=== PATIENT | male | born 1950 | race Caucasian/White ===

== ENCOUNTER 2022-07-08 14:29 | Inpatient (IN) ==
[2022-07-08 15:38] LABS: Basophils # 0.1 10*3/uL (0.0-0.2); Basophils % 1.4 % (0.0-0.8); Eosinophils # 0.1 10*3/uL (0.0-0.87); Eosinophils % 2.5 % (0.00-10.9); Hematocrit 30.9 VOL% (42.0-52.0); Hemoglobin 10.1 GM/DL (14.0-18.0); Immature Granulocytes % 0.4 %; Immature Granulocytes Absolute 0.02 #; Lymphocytes # 1.8 10*3/uL (1.4-4.0); Mean Corpuscular HGB Conc 32.7 GM/DL (32-36); Mean Corpuscular Volume 121.2 FL (87-102); Mean Platelet Volume 11.5 FL (9.6-12.0); Monocytes # 0.6 10*3/uL (0.11-0.8); Neutrophils % 50.7 % (38.7-73.9); Platelet Count 146 T/CUMM (130-400); Red Blood Count 2.55 MC/CUMM (3.8-5.5); Red Cell Distribution Width 13.7 % (9.3-17.3); White Blood Count 5.2 T/CUMM (4-12)
[2022-07-08 15:43] LABS: INR 1.5; PT Patient Result 16.1 SECS (10.1-12.1)
[2022-07-08 15:53] LABS: Albumin 2.7 G/DL (3.4-5.0); Bilirubin,Total 2.9 MG/DL (0.20-1.00); Calcium 9.2 MG/DL (8.5-10.1); Osmolality,Calculated 289.3 MOS/KG (273-304); Potassium 4.6 MMOL/L (3.5-5.1); Total Protein 7.1 G/DL (6.4-8.2)
[2022-07-08] MEDS ORDERED: ALBUTEROL/IPRATROPIUM 3 ML NEB RESP TX STA (16:38)
[2022-07-08] MEDS ORDERED: ONDANSETRON 4 MG/2 ML VIAL IV PRN (16:40)
[2022-07-08] MEDS ORDERED: ACETAMINOPHEN 325 MG TABLET PO PRN (16:40)
[2022-07-08] MEDS ORDERED: ALBUTEROL/IPRATROPIUM 3 ML NEB RESP TX ONE (17:09)
[2022-07-08] MEDS ORDERED: ALBUTEROL 2.5 MG/3 ML NEB RESP TX SCH (19:00)
[2022-07-08] MEDS ORDERED: ALBUTEROL/IPRATROPIUM 3 ML NEB RESP TX PRN (19:05)
[2022-07-08] MEDS: ALBUTEROL 2.5 MG/3 ML NEB RESP TX SCH (19:55)
[2022-07-08] MEDS: DOCUSATE SODIUM 100 MG CAPSULE PO SCH (20:37)
[2022-07-09 04:11] LABS: Osmolality,Calculated 294.8 MOS/KG (273-304); Potassium 5.1 MMOL/L (3.5-5.1)
[2022-07-09 04:14] LABS: Albumin 2.1 G/DL (3.4-5.0); Bilirubin,Direct 1.13 MG/DL (0.0-0.20); Bilirubin,Total 2.1 MG/DL (0.20-1.00); Total Protein 5.9 G/DL (6.4-8.2)
[2022-07-09 04:20] LABS: INR 1.7; PT Patient Result 17.8 SECS (10.1-12.1)
[2022-07-09 05:28] LABS: Basophils % 0.7 % (0.0-0.8); Eosinophils # 0.2 10*3/uL (0.0-0.87); Eosinophils % 2.7 % (0.00-10.9); Hematocrit 25.4 VOL% (42.0-52.0); Hemoglobin 8.2 GM/DL (14.0-18.0); Immature Granulocytes % 0.5 %; Immature Granulocytes Absolute 0.03 #; Lymphocytes # 2.3 10*3/uL (1.4-4.0); Lymphocytes % 40.5 % (21.2-54.2); Mean Corpuscular HGB Conc 32.3 GM/DL (32-36); Mean Corpuscular Volume 122.1 FL (87-102); Monocytes # 0.7 10*3/uL (0.11-0.8); Monocytes % 12.7 % (1.7-12.7); Neutrophils % 42.9 % (38.7-73.9); Platelet Count 113 T/CUMM (130-400); Red Blood Count 2.08 MC/CUMM (3.8-5.5); Red Cell Distribution Width 13.6 % (9.3-17.3); White Blood Count 5.7 T/CUMM (4-12)
[2022-07-09 06:16] LABS: Platelet Estimate Decreased
[2022-07-09] MEDS: ALBUTEROL 2.5 MG/3 ML NEB RESP TX SCH ×4 (07:36→20:29)
[2022-07-09] MEDS ORDERED: FUROSEMIDE 40 MG/4 ML VIAL IV SCH (09:00)
[2022-07-09] MEDS: DOCUSATE SODIUM 100 MG CAPSULE PO SCH ×2 (09:21→21:35)
[2022-07-09] MEDS: PANTOPRAZOLE 40 MG TABLET PO SCH (09:21)
[2022-07-09 11:51] LABS: Hepatitis B Core IgM Quant 0.19 Index; Hepatitis B Surface Ag Quant < 0.10 Index; Hepatitis B Surface Ag Result Non-Reactive (NonReactive); Hepatitis C Virus Ab Quant > 11.00 Index; Hepatitis C Virus Ab Result Reactive (NonReactive)
[2022-07-09] MEDS ORDERED: carvediloL 3.125 MG TABLET PO SCH (17:00)
[2022-07-09] MEDS: metOLazone 5 MG TABLET PO SCH (17:26)
[2022-07-09] MEDS ORDERED: carvediloL 6.25 MG TABLET PO SCH (21:00)
[2022-07-09] MEDS: FUROSEMIDE 40 MG/4 ML VIAL IV SCH (21:34)
[2022-07-09] MEDS: ALBUMIN 25% 25 GM/100 ML VIAL IV SCH (21:35)
[2022-07-09] MEDS: MIDODRINE 5 MG TABLET PO SCH (21:35)
[2022-07-10] MEDS: ALBUTEROL 2.5 MG/3 ML NEB RESP TX SCH ×4 (01:58→19:27)
[2022-07-10] MEDS: THYROID 60 MG TABLET PO SCH (05:13)
[2022-07-10] MEDS: ALBUMIN 25% 25 GM/100 ML VIAL IV SCH ×3 (10:13→21:30)
[2022-07-10] MEDS: DOCUSATE SODIUM 100 MG CAPSULE PO SCH ×2 (10:14→21:30)
[2022-07-10] MEDS: CHOLECALCIFEROL 5,000 UNIT TABLET PO SCH (10:14)
[2022-07-10] MEDS: ASPIRIN EC 81 MG TABLET PO SCH (10:14)
[2022-07-10] MEDS: metOLazone 5 MG TABLET PO SCH (10:14)
[2022-07-10] MEDS: MIDODRINE 5 MG TABLET PO SCH ×3 (10:15→21:30)
[2022-07-10] MEDS: FUROSEMIDE 40 MG/4 ML VIAL IV SCH ×2 (10:15→16:34)
[2022-07-10] MEDS: ESCITALOPRAM 10 MG TABLET PO SCH (10:15)
[2022-07-10] MEDS: PANTOPRAZOLE 40 MG TABLET PO SCH (10:15)
[2022-07-10] MEDS ORDERED: FUROSEMIDE 80 MG TABLET PO SCH (20:00)
[2022-07-10] MEDS: FUROSEMIDE 80 MG TABLET PO SCH (21:30)
[2022-07-11] MEDS: ALBUTEROL 2.5 MG/3 ML NEB RESP TX SCH ×5 (00:44→23:46)
[2022-07-11] MEDS: THYROID 60 MG TABLET PO SCH (05:05)
[2022-07-11 05:31] LABS: Basophils # 0.1 10*3/uL (0.0-0.2); Basophils % 0.6 % (0.0-0.8); Eosinophils # 0.3 10*3/uL (0.0-0.87); Eosinophils % 3.6 % (0.00-10.9); Hematocrit 24.9 VOL% (42.0-52.0); Hemoglobin 8.1 GM/DL (14.0-18.0); Immature Granulocytes Absolute 0.08 #; Lymphocytes # 2.2 10*3/uL (1.4-4.0); Lymphocytes % 28.3 % (21.2-54.2); Mean Corpuscular HGB Conc 32.5 GM/DL (32-36); Mean Corpuscular Volume 120.9 FL (87-102); Mean Platelet Volume 11.9 FL (9.6-12.0); Monocytes # 1.2 10*3/uL (0.11-0.8); Monocytes % 15.2 % (1.7-12.7); Neutrophils % 51.3 % (38.7-73.9); Platelet Count 131 T/CUMM (130-400); Red Blood Count 2.06 MC/CUMM (3.8-5.5); Red Cell Distribution Width 13.5 % (9.3-17.3); White Blood Count 7.7 T/CUMM (4-12)
[2022-07-11 05:46] LABS: Calcium 8.8 MG/DL (8.5-10.1); Osmolality,Calculated 295.1 MOS/KG (273-304); Potassium 5.2 MMOL/L (3.5-5.1)
[2022-07-11 05:48] LABS: Albumin 2.5 G/DL (3.4-5.0); Bilirubin,Total 2.3 MG/DL (0.20-1.00); Calcium 8.8 MG/DL (8.5-10.1); Osmolality,Calculated 291.3 MOS/KG (273-304); Potassium 5.1 MMOL/L (3.5-5.1); Total Protein 6.1 G/DL (6.4-8.2)
[2022-07-11] MEDS: MIDODRINE 5 MG TABLET PO SCH ×3 (09:33→21:09)
[2022-07-11] MEDS: ASPIRIN EC 81 MG TABLET PO SCH (09:33)
[2022-07-11] MEDS: FUROSEMIDE 80 MG TABLET PO SCH ×3 (09:33→21:10)
[2022-07-11] MEDS: PANTOPRAZOLE 40 MG TABLET PO SCH (09:33)
[2022-07-11] MEDS: metOLazone 5 MG TABLET PO SCH (09:33)
[2022-07-11] MEDS: DOCUSATE SODIUM 100 MG CAPSULE PO SCH ×2 (09:33→21:10)
[2022-07-11] MEDS: CHOLECALCIFEROL 5,000 UNIT TABLET PO SCH (09:33)
[2022-07-11] MEDS: ESCITALOPRAM 10 MG TABLET PO SCH (09:33)
[2022-07-11] MEDS: ALBUMIN 25% 25 GM/100 ML VIAL IV SCH ×3 (11:01→21:08)
[2022-07-12] MEDS: THYROID 60 MG TABLET PO SCH (05:25)
[2022-07-12] MEDS: ALBUTEROL 2.5 MG/3 ML NEB RESP TX SCH ×3 (07:00→19:12)
[2022-07-12 08:39] LABS: INR 1.6; PT Patient Result 16.7 SECS (10.1-12.1)
[2022-07-12] MEDS: CHOLECALCIFEROL 5,000 UNIT TABLET PO SCH (09:44)
[2022-07-12] MEDS: PANTOPRAZOLE 40 MG TABLET PO SCH (09:45)
[2022-07-12] MEDS: MIDODRINE 5 MG TABLET PO SCH ×3 (09:45→20:23)
[2022-07-12] MEDS: FUROSEMIDE 80 MG TABLET PO SCH ×3 (09:45→20:23)
[2022-07-12] MEDS: DOCUSATE SODIUM 100 MG CAPSULE PO SCH ×2 (09:45→20:23)
[2022-07-12] MEDS: ESCITALOPRAM 10 MG TABLET PO SCH (09:45)
[2022-07-12] MEDS: metOLazone 5 MG TABLET PO SCH (09:45)
[2022-07-12] MEDS: ALBUMIN 25% 25 GM/100 ML VIAL IV SCH ×3 (09:52→20:23)
[2022-07-12] MEDS: ASPIRIN EC 81 MG TABLET PO SCH (11:15)
[2022-07-12 14:17] LABS: Neutrophils,Peritoneal Fluid 42 %; RBC,Peritoneal Fluid 230 T/CUMM
[2022-07-13] MEDS: ALBUTEROL 2.5 MG/3 ML NEB RESP TX SCH ×4 (00:02→19:20)
[2022-07-13 05:11] LABS: Basophils % 0.5 % (0.0-0.8); Eosinophils # 0.1 10*3/uL (0.0-0.87); Eosinophils % 1.6 % (0.00-10.9); Hematocrit 23.8 VOL% (42.0-52.0); Hemoglobin 7.8 GM/DL (14.0-18.0); Immature Granulocytes % 0.5 %; Immature Granulocytes Absolute 0.04 #; Lymphocytes # 1.8 10*3/uL (1.4-4.0); Lymphocytes % 21.4 % (21.2-54.2); Mean Corpuscular HGB Conc 32.8 GM/DL (32-36); Mean Corpuscular Volume 120.2 FL (87-102); Mean Platelet Volume 11.4 FL (9.6-12.0); Monocytes % 11.1 % (1.7-12.7); Neutrophils % 64.9 % (38.7-73.9); Platelet Count 107 T/CUMM (130-400); Red Blood Count 1.98 MC/CUMM (3.8-5.5); Red Cell Distribution Width 13.7 % (9.3-17.3); White Blood Count 8.6 T/CUMM (4-12)
[2022-07-13 05:27] LABS: Calcium 9.4 MG/DL (8.5-10.1); Osmolality,Calculated 294.1 MOS/KG (273-304); Potassium 4.5 MMOL/L (3.5-5.1)
[2022-07-13 05:35] LABS: Albumin 3.2 G/DL (3.4-5.0); Bilirubin,Direct 1.36 MG/DL (0.0-0.20); Bilirubin,Indirect 1.4 MG/DL (0.0-1.0); Bilirubin,Total 2.8 MG/DL (0.20-1.00); Total Protein 6.3 G/DL (6.4-8.2)
[2022-07-13 05:36] LABS: Macrocytosis Slight; Target Cells Slight
[2022-07-13 05:37] LABS: Ovalocytes Slight; Platelet Estimate Adequate
[2022-07-13] MEDS: THYROID 60 MG TABLET PO SCH (06:20)
[2022-07-13 06:31] LABS: Bilirubin,Urine Negative (Negative); Blood, Urine Negative (Negative); Glucose,Urine (UA) Negative (Negative); Hyaline Casts,Urine 9 /LPF (0-3); Ketones,Urine Negative (Negative); Mucus,Urine Occasional /LPF (Occasional); Nitrite,Urine Negative (Negative); Protein,Urine Negative (Negative); RBC,Urine 1 /HPF (0-4); Urine Appearance Clear (Clear); Urine Color Yellow (Yellow); Urine Urobilinogen 0.2 eU/dL (<2.0); Urine pH 5.5 (4.5-8.0)
[2022-07-13 06:51] LABS: Microalbum Ur Quant Random 29.4 MG/L (0-20)
[2022-07-13] MEDS: ALBUMIN 25% 25 GM/100 ML VIAL IV SCH ×3 (08:12→20:58)
[2022-07-13] MEDS: SODIUM CHLORIDE 0.9% 1,000 ML IV SCH (12:35)
[2022-07-13] MEDS ORDERED: propofoL 200 MG/20 ML VIAL IV ONE (12:41)
[2022-07-13] MEDS ORDERED: ETOMIDATE 20 MG/10 ML VIAL IV ONE (12:41)
[2022-07-13] MEDS ORDERED: LIDOCAINE 2% 5 ML VIAL ONE (12:41)
[2022-07-13 12:46] LABS: Glomerular Basement Membrane A < 0.2 U; Myeloperoxidase Antibody < 0.2 U
[2022-07-13] MEDS: CHOLECALCIFEROL 5,000 UNIT TABLET PO SCH (17:11)
[2022-07-13] MEDS: PANTOPRAZOLE 40 MG TABLET PO SCH (17:11)
[2022-07-13] MEDS: DOCUSATE SODIUM 100 MG CAPSULE PO SCH ×2 (17:11→20:50)
[2022-07-13] MEDS: ASPIRIN EC 81 MG TABLET PO SCH (17:11)
[2022-07-13] MEDS: MIDODRINE 5 MG TABLET PO SCH ×3 (17:11→20:50)
[2022-07-13] MEDS: metOLazone 5 MG TABLET PO SCH (17:12)
[2022-07-13] MEDS: ESCITALOPRAM 10 MG TABLET PO SCH (17:13)
[2022-07-13] MEDS: FUROSEMIDE 80 MG TABLET PO SCH ×2 (17:16→20:50)
[2022-07-13 19:11] LABS: Antinuclear Ab, S 0.3 U
[2022-07-14] MEDS: ALBUTEROL 2.5 MG/3 ML NEB RESP TX SCH ×4 (00:54→20:54)
[2022-07-14] MEDS: THYROID 60 MG TABLET PO SCH (05:36)
[2022-07-14] MEDS: ASPIRIN EC 81 MG TABLET PO SCH (08:59)
[2022-07-14] MEDS: MIDODRINE 5 MG TABLET PO SCH ×3 (08:59→20:18)
[2022-07-14] MEDS: metOLazone 5 MG TABLET PO SCH (08:59)
[2022-07-14] MEDS: DOCUSATE SODIUM 100 MG CAPSULE PO SCH ×2 (09:00→20:18)
[2022-07-14] MEDS: CHOLECALCIFEROL 5,000 UNIT TABLET PO SCH (09:00)
[2022-07-14] MEDS: ALBUMIN 25% 25 GM/100 ML VIAL IV SCH ×3 (09:00→20:18)
[2022-07-14] MEDS: PANTOPRAZOLE 40 MG TABLET PO SCH (09:00)
[2022-07-14] MEDS: FUROSEMIDE 80 MG TABLET PO SCH ×3 (09:00→20:18)
[2022-07-14] MEDS: ESCITALOPRAM 10 MG TABLET PO SCH (09:00)
[2022-07-14] MEDS: SODIUM CHLORIDE 0.9% 1,000 ML IV SCH (09:05)
[2022-07-14 11:13] LABS: INR 1.8; PT Patient Result 19.2 SECS (10.1-12.1)
[2022-07-14] MEDS: PIPERACILLIN/TAZOBACTAM 3,375 MG in SODIUM CHLORIDE 0.9% 100 ML IV SCH (12:32)
[2022-07-15] MEDS: ALBUTEROL 2.5 MG/3 ML NEB RESP TX SCH ×4 (00:15→20:22)
[2022-07-15] MEDS: PIPERACILLIN/TAZOBACTAM 3,375 MG in SODIUM CHLORIDE 0.9% 100 ML IV SCH ×2 (01:20→13:40)
[2022-07-15 05:01] LABS: Basophils % 0.5 % (0.0-0.8); Eosinophils # 0.2 10*3/uL (0.0-0.87); Eosinophils % 2.8 % (0.00-10.9); Hematocrit 22.3 VOL% (42.0-52.0); Hemoglobin 7.4 GM/DL (14.0-18.0); Immature Granulocytes % 0.5 %; Immature Granulocytes Absolute 0.03 #; Lymphocytes # 1.7 10*3/uL (1.4-4.0); Lymphocytes % 25.7 % (21.2-54.2); Mean Corpuscular HGB Conc 33.2 GM/DL (32-36); Mean Corpuscular Volume 117.4 FL (87-102); Mean Platelet Volume 11.2 FL (9.6-12.0); Monocytes % 15.1 % (1.7-12.7); Neutrophils % 55.4 % (38.7-73.9); Platelet Count 91 T/CUMM (130-400); Red Cell Distribution Width 13.8 % (9.3-17.3); White Blood Count 6.4 T/CUMM (4-12)
[2022-07-15 05:27] LABS: Albumin 3.8 G/DL (3.4-5.0); Bilirubin,Total 3.2 MG/DL (0.20-1.00); Calcium 9.5 MG/DL (8.5-10.1); Potassium 4.3 MMOL/L (3.5-5.1); Total Protein 6.3 G/DL (6.4-8.2)
[2022-07-15] MEDS: THYROID 60 MG TABLET PO SCH (05:29)
[2022-07-15] MEDS: ALBUMIN 25% 25 GM/100 ML VIAL IV SCH ×3 (10:32→21:48)
[2022-07-15] MEDS: FUROSEMIDE 80 MG TABLET PO SCH ×3 (10:33→21:47)
[2022-07-15] MEDS: MIDODRINE 5 MG TABLET PO SCH ×3 (10:33→21:47)
[2022-07-15] MEDS: CHOLECALCIFEROL 5,000 UNIT TABLET PO SCH (10:33)
[2022-07-15] MEDS: ASPIRIN EC 81 MG TABLET PO SCH (10:33)
[2022-07-15] MEDS: ESCITALOPRAM 10 MG TABLET PO SCH (10:34)
[2022-07-15] MEDS: PANTOPRAZOLE 40 MG TABLET PO SCH (10:34)
[2022-07-15] MEDS: DOCUSATE SODIUM 100 MG CAPSULE PO SCH ×2 (10:34→21:47)
[2022-07-15] MEDS: metOLazone 5 MG TABLET PO SCH (10:34)
[2022-07-16] MEDS: PIPERACILLIN/TAZOBACTAM 3,375 MG in SODIUM CHLORIDE 0.9% 100 ML IV SCH (00:11)
[2022-07-16] MEDS: ALBUTEROL 2.5 MG/3 ML NEB RESP TX SCH ×2 (01:50→07:50)
[2022-07-16 05:09] LABS: Basophils % 0.6 % (0.0-0.8); Eosinophils # 0.2 10*3/uL (0.0-0.87); Hematocrit 22.8 VOL% (42.0-52.0); Hemoglobin 7.7 GM/DL (14.0-18.0); Immature Granulocytes % 0.6 %; Immature Granulocytes Absolute 0.04 #; Lymphocytes # 1.5 10*3/uL (1.4-4.0); Lymphocytes % 22.1 % (21.2-54.2); Mean Corpuscular HGB Conc 33.8 GM/DL (32-36); Mean Corpuscular Volume 115.2 FL (87-102); Mean Platelet Volume 11.8 FL (9.6-12.0); Monocytes # 0.8 10*3/uL (0.11-0.8); Monocytes % 11.7 % (1.7-12.7); Platelet Count 93 T/CUMM (130-400); Red Blood Count 1.98 MC/CUMM (3.8-5.5); Red Cell Distribution Width 13.8 % (9.3-17.3); White Blood Count 6.7 T/CUMM (4-12)
[2022-07-16 05:25] LABS: Albumin 3.7 G/DL (3.4-5.0); Bilirubin,Total 3.6 MG/DL (0.20-1.00); Calcium 9.2 MG/DL (8.5-10.1); Osmolality,Calculated 294.1 MOS/KG (273-304); Potassium 2.9 MMOL/L (3.5-5.1); Total Protein 6.5 G/DL (6.4-8.2)
[2022-07-16] MEDS: THYROID 60 MG TABLET PO SCH (05:42)
[2022-07-16 05:45] LABS: Eosinophils 1 % (0-10); Lymphocytes 16 % (20-55); Platelet Estimate Decreased; Target Cells 2+; Total Cells Counted 100
[2022-07-16] MEDS ORDERED: POTASSIUM CHLORIDE 20 MEQ TABLET PO PRN (07:58)
[2022-07-16] MEDS ORDERED: POTASSIUM CHLORIDE RIDER 10 MEQ/100 ML PREMIX IV PRN (07:58)
[2022-07-16] MEDS: ALBUMIN 25% 25 GM/100 ML VIAL IV SCH (08:34)
[2022-07-16] MEDS: ESCITALOPRAM 10 MG TABLET PO SCH (08:35)
[2022-07-16] MEDS: FUROSEMIDE 80 MG TABLET PO SCH (08:36)
[2022-07-16] MEDS: MIDODRINE 5 MG TABLET PO SCH (08:36)
[2022-07-16] MEDS: CHOLECALCIFEROL 5,000 UNIT TABLET PO SCH (08:36)
[2022-07-16] MEDS: ASPIRIN EC 81 MG TABLET PO SCH (08:36)
[2022-07-16] MEDS: metOLazone 5 MG TABLET PO SCH (08:36)
[2022-07-16] MEDS: DOCUSATE SODIUM 100 MG CAPSULE PO SCH (08:37)
[2022-07-16] MEDS: PANTOPRAZOLE 40 MG TABLET PO SCH (08:37)
[2022-07-16] MEDS ORDERED: POTASSIUM CHLORIDE 20 MEQ TABLET PO ONE (08:40)
[2022-07-16 12:02] VITALS: BP 104/58
[2022-07-16] MEDS ORDERED: ALBUMIN 25% 25 GM/100 ML VIAL IV SCH (21:00)
== END 2022-07-16 12:50 | disposition swing bed (61) | DRG 432 ==
LOC: N.ED 14:29 → N.EDINP 16:33 → N.5E 17:51
PROVIDERS: ADMIT Family Medicine; ATTEND Family Medicine

== ENCOUNTER 2022-10-06 10:04 | Inpatient (IN) ==
[2022-10-06] MEDS ORDERED: POTASSIUM CHLORIDE RIDER 10 MEQ/100 ML PREMIX IV PRN (11:33)
[2022-10-06] MEDS ORDERED: POTASSIUM CHLORIDE 20 MEQ TABLET PO PRN (11:33)
[2022-10-06] MEDS ORDERED: MAGNESIUM SULF RIDER 2 GM/50 ML PREMIX IV PRN (11:33)
[2022-10-06] MEDS ORDERED: MAGNESIUM SULF RIDER 4 GM/100 ML PREMIX IV PRN (11:33)
[2022-10-06] MEDS ORDERED: ACETAMINOPHEN 325 MG TABLET PO PRN (11:33)
[2022-10-06 12:10] LABS: Basophils # 0.1 10*3/uL (0.0-0.2); Basophils % 0.7 % (0.0-0.8); Eosinophils # 0.4 10*3/uL (0.0-0.87); Eosinophils % 6.1 % (0.00-10.9); Hematocrit 24.7 VOL% (42.0-52.0); Hemoglobin 7.7 GM/DL (14.0-18.0); Immature Granulocytes % 0.7 %; Immature Granulocytes Absolute 0.05 #; Lymphocytes # 1.4 10*3/uL (1.4-4.0); Lymphocytes % 19.9 % (21.2-54.2); Mean Corpuscular HGB Conc 31.2 GM/DL (32-36); Mean Corpuscular Volume 111.3 FL (87-102); Mean Platelet Volume 10.1 FL (9.6-12.0); Monocytes # 0.8 10*3/uL (0.11-0.8); Monocytes % 10.9 % (1.7-12.7); Neutrophils % 61.7 % (38.7-73.9); Platelet Count 162 T/CUMM (130-400); Red Blood Count 2.22 MC/CUMM (3.8-5.5); Red Cell Distribution Width 14.3 % (9.3-17.3); White Blood Count 7.04 T/CUMM (4-12)
[2022-10-06 12:27] LABS: Calcium 9.4 MG/DL (8.5-10.1); Osmolality,Calculated 287.4 MOS/KG (273-304)
[2022-10-06 12:32] LABS: INR 1.3; PT Patient Result 14.6 SECS (10.1-12.1)
[2022-10-06 12:34] LABS: Albumin 2.4 G/DL (3.4-5.0); Bilirubin,Direct 0.92 MG/DL (0.0-0.20); Bilirubin,Indirect 1.2 MG/DL (0.0-1.0); Bilirubin,Total 2.1 MG/DL (0.20-1.00); Total Protein 6.9 G/DL (6.4-8.2)
[2022-10-06] MEDS: cefTRIAXone 1,000 MG in SODIUM CHLORIDE 0.9% 100 ML IV SCH (13:02)
[2022-10-06] MEDS ORDERED: ALBUTEROL 2.5 MG/3 ML NEB RESP TX PRN (13:19)
[2022-10-06] MEDS: SODIUM ZIRCONIUM CYCLOSILICATE 10 GM PACK PO SCH ×2 (15:16→20:43)
[2022-10-06] MEDS ORDERED: SODIUM CHLORIDE 0.9% 1,000 ML IV PRN (15:27)
[2022-10-06] MEDS: MIDODRINE 5 MG TABLET PO SCH ×2 (16:25→20:42)
[2022-10-06] MEDS ORDERED: FUROSEMIDE 40 MG/4 ML VIAL IV ONE (19:00)
[2022-10-06] MEDS: DOCUSATE SODIUM 100 MG CAPSULE PO SCH (21:02)
[2022-10-07 04:57] LABS: Hyaline Casts,Urine 14 /LPF (0-3); RBC,Urine <1 /HPF (0-4)
[2022-10-07 04:58] LABS: Bilirubin,Urine Negative (Negative); Blood, Urine Negative (Negative); Glucose,Urine (UA) Negative (Negative); Ketones,Urine Negative (Negative); Nitrite,Urine Negative (Negative); Protein,Urine Negative (Negative); Urine Appearance Clear (Clear); Urine Color Yellow (Yellow); Urine Urobilinogen 0.2 eU/dL (<2.0); Urine pH 5.5 (4.5-8.0)
[2022-10-07 05:41] LABS: Basophils # 0.1 10*3/uL (0.0-0.2); Basophils % 0.8 % (0.0-0.8); Eosinophils # 0.4 10*3/uL (0.0-0.87); Eosinophils % 4.8 % (0.00-10.9); Hematocrit 28.1 VOL% (42.0-52.0); Hemoglobin 9.4 GM/DL (14.0-18.0); Immature Granulocytes % 0.8 %; Immature Granulocytes Absolute 0.06 #; Lymphocytes # 1.4 10*3/uL (1.4-4.0); Lymphocytes % 17.1 % (21.2-54.2); Mean Corpuscular HGB Conc 33.5 GM/DL (32-36); Mean Corpuscular Volume 99.3 FL (87-102); Mean Platelet Volume 10.4 FL (9.6-12.0); Monocytes % 12.3 % (1.7-12.7); Neutrophils % 64.2 % (38.7-73.9); Platelet Count 126 T/CUMM (130-400); Red Blood Count 2.83 MC/CUMM (3.8-5.5); Red Cell Distribution Width 18.6 % (9.3-17.3); White Blood Count 7.96 T/CUMM (4-12)
[2022-10-07 06:08] LABS: Calcium 9.2 MG/DL (8.5-10.1); Osmolality,Calculated 293.1 MOS/KG (273-304); Potassium 5.9 MMOL/L (3.5-5.1)
[2022-10-07 06:14] LABS: Bilirubin,Direct 0.92 MG/DL (0.0-0.20); Bilirubin,Total 2.9 MG/DL (0.20-1.00); Calcium 8.9 MG/DL (8.5-10.1); Osmolality,Calculated 291.3 MOS/KG (273-304); Potassium 5.4 MMOL/L (3.5-5.1); Total Protein 5.8 G/DL (6.4-8.2)
[2022-10-07] MEDS: PANTOPRAZOLE 40 MG TABLET PO SCH (08:55)
[2022-10-07] MEDS: DOCUSATE SODIUM 100 MG CAPSULE PO SCH ×2 (08:55→20:03)
[2022-10-07] MEDS: SODIUM ZIRCONIUM CYCLOSILICATE 10 GM PACK PO SCH ×3 (08:56→20:03)
[2022-10-07] MEDS: MIDODRINE 5 MG TABLET PO SCH ×3 (09:03→20:03)
[2022-10-07] MEDS: cefTRIAXone 1,000 MG in SODIUM CHLORIDE 0.9% 100 ML IV SCH (12:11)
[2022-10-07] MEDS ORDERED: FUROSEMIDE 40 MG/4 ML VIAL IV ONE (13:41)
[2022-10-08 04:49] LABS: Basophils # 0.1 10*3/uL (0.0-0.2); Basophils % 0.9 % (0.0-0.8); Eosinophils # 0.5 10*3/uL (0.0-0.87); Eosinophils % 6.3 % (0.00-10.9); Hematocrit 27.7 VOL% (42.0-52.0); Hemoglobin 9.2 GM/DL (14.0-18.0); Immature Granulocytes % 0.7 %; Immature Granulocytes Absolute 0.05 #; Lymphocytes % 26.7 % (21.2-54.2); Mean Corpuscular HGB Conc 33.2 GM/DL (32-36); Mean Corpuscular Volume 100.4 FL (87-102); Mean Platelet Volume 10.5 FL (9.6-12.0); Monocytes # 1.1 10*3/uL (0.11-0.8); Neutrophils % 51.4 % (38.7-73.9); Platelet Count 128 T/CUMM (130-400); Red Blood Count 2.76 MC/CUMM (3.8-5.5); Red Cell Distribution Width 18.4 % (9.3-17.3); White Blood Count 7.59 T/CUMM (4-12)
[2022-10-08 04:59] LABS: Calcium 8.6 MG/DL (8.5-10.1); Osmolality,Calculated 291.3 MOS/KG (273-304); Potassium 4.4 MMOL/L (3.5-5.1)
[2022-10-08] MEDS: THYROID 60 MG TABLET PO SCH (05:12)
[2022-10-08] MEDS ORDERED: ASPIRIN EC 81 MG TABLET PO SCH (09:00)
[2022-10-08] MEDS: DOCUSATE SODIUM 100 MG CAPSULE PO SCH ×2 (09:34→20:39)
[2022-10-08] MEDS: PANTOPRAZOLE 40 MG TABLET PO SCH (09:34)
[2022-10-08] MEDS: MIDODRINE 5 MG TABLET PO SCH ×3 (09:34→20:39)
[2022-10-08] MEDS: SODIUM ZIRCONIUM CYCLOSILICATE 10 GM PACK PO SCH (09:38)
[2022-10-08] MEDS: ESCITALOPRAM 10 MG TABLET PO SCH (09:38)
[2022-10-08] MEDS ORDERED: FUROSEMIDE 40 MG TABLET PO ONE (10:49)
[2022-10-08] MEDS: cefTRIAXone 1,000 MG in SODIUM CHLORIDE 0.9% 100 ML IV SCH (14:26)
[2022-10-08] MEDS: ONDANSETRON 4 MG/2 ML VIAL IV PRN (15:28)
[2022-10-08] MEDS ORDERED: LACTULOSE 20 GM/30 ML UDCUP PO PRN (16:15)
[2022-10-09 04:47] LABS: Basophils # 0.1 10*3/uL (0.0-0.2); Basophils % 0.5 % (0.0-0.8); Eosinophils # 0.1 10*3/uL (0.0-0.87); Eosinophils % 1.3 % (0.00-10.9); Hematocrit 31.9 VOL% (42.0-52.0); Hemoglobin 10.2 GM/DL (14.0-18.0); Immature Granulocytes % 0.4 %; Immature Granulocytes Absolute 0.04 #; Lymphocytes # 1.7 10*3/uL (1.4-4.0); Lymphocytes % 18.5 % (21.2-54.2); Mean Corpuscular Volume 102.9 FL (87-102); Mean Platelet Volume 10.7 FL (9.6-12.0); Monocytes % 11.1 % (1.7-12.7); Neutrophils % 68.2 % (38.7-73.9); Platelet Count 158 T/CUMM (130-400); Red Cell Distribution Width 17.9 % (9.3-17.3); White Blood Count 9.28 T/CUMM (4-12)
[2022-10-09 05:24] LABS: Calcium 9.1 MG/DL (8.5-10.1); Osmolality,Calculated 290.4 MOS/KG (273-304); Potassium 4.5 MMOL/L (3.5-5.1)
[2022-10-09] MEDS: THYROID 60 MG TABLET PO SCH (06:29)
[2022-10-09] MEDS: DOCUSATE SODIUM 100 MG CAPSULE PO SCH ×2 (09:29→21:17)
[2022-10-09] MEDS: MIDODRINE 5 MG TABLET PO SCH ×3 (09:29→21:17)
[2022-10-09] MEDS: PANTOPRAZOLE 40 MG TABLET PO SCH (09:29)
[2022-10-09] MEDS: ESCITALOPRAM 10 MG TABLET PO SCH (09:30)
[2022-10-09] MEDS: cefTRIAXone 1,000 MG in SODIUM CHLORIDE 0.9% 100 ML IV SCH (11:54)
[2022-10-09] MEDS ORDERED: PROMETHAZINE INJ 12.5 MG in SODIUM CHLORIDE 0.9% 50 ML IV PRN (13:03)
[2022-10-09] MEDS: MORPHINE 2 MG/1 ML SYRINGE IV PRN (15:03)
[2022-10-10 05:50] LABS: Basophils # 0.1 10*3/uL (0.0-0.2); Basophils % 0.6 % (0.0-0.8); Eosinophils # 0.3 10*3/uL (0.0-0.87); Eosinophils % 2.6 % (0.00-10.9); Hematocrit 29.6 VOL% (42.0-52.0); Hemoglobin 9.6 GM/DL (14.0-18.0); Immature Granulocytes % 0.4 %; Immature Granulocytes Absolute 0.04 #; Lymphocytes # 1.6 10*3/uL (1.4-4.0); Lymphocytes % 15.6 % (21.2-54.2); Mean Corpuscular HGB Conc 32.4 GM/DL (32-36); Mean Corpuscular Volume 102.8 FL (87-102); Mean Platelet Volume 11.6 FL (9.6-12.0); Monocytes # 1.3 10*3/uL (0.11-0.8); Monocytes % 12.2 % (1.7-12.7); Neutrophils % 68.6 % (38.7-73.9); Platelet Count 128 T/CUMM (130-400); Red Blood Count 2.88 MC/CUMM (3.8-5.5); Red Cell Distribution Width 17.3 % (9.3-17.3); White Blood Count 10.42 T/CUMM (4-12)
[2022-10-10 06:08] LABS: Albumin 1.9 G/DL (3.4-5.0); Bilirubin,Direct 0.52 MG/DL (0.0-0.20); Bilirubin,Indirect 1.5 MG/DL (0.0-1.0); Calcium 9.3 MG/DL (8.5-10.1); Osmolality,Calculated 284.7 MOS/KG (273-304); Potassium 4.7 MMOL/L (3.5-5.1); Total Protein 5.9 G/DL (6.4-8.2)
[2022-10-10] MEDS: THYROID 60 MG TABLET PO SCH (06:36)
[2022-10-10 06:42] LABS: Anisocytosis 1+; Burr Cells Few; Macrocytosis Slight; Platelet Estimate Adequate
[2022-10-10] MEDS: PANTOPRAZOLE 40 MG TABLET PO SCH (09:33)
[2022-10-10] MEDS: MIDODRINE 5 MG TABLET PO SCH ×3 (09:33→20:57)
[2022-10-10] MEDS: DOCUSATE SODIUM 100 MG CAPSULE PO SCH ×2 (09:33→20:57)
[2022-10-10] MEDS: ESCITALOPRAM 10 MG TABLET PO SCH (09:37)
[2022-10-10] MEDS: cefTRIAXone 1,000 MG in SODIUM CHLORIDE 0.9% 100 ML IV SCH (13:25)
[2022-10-10] MEDS: ALBUMIN 25% 12.5 GM/50 ML VIAL IV SCH (14:10)
[2022-10-11] MEDS: ALBUMIN 25% 12.5 GM/50 ML VIAL IV SCH ×3 (00:14→23:43)
[2022-10-11 05:14] LABS: Albumin 2.3 G/DL (3.4-5.0); Osmolality,Calculated 287.5 MOS/KG (273-304); Phosphorous 5.4 MG/DL (2.5-4.9); Potassium 4.6 MMOL/L (3.5-5.1)
[2022-10-11] MEDS: THYROID 60 MG TABLET PO SCH (08:53)
[2022-10-11] MEDS: DOCUSATE SODIUM 100 MG CAPSULE PO SCH ×2 (08:59→21:43)
[2022-10-11] MEDS: ESCITALOPRAM 10 MG TABLET PO SCH (08:59)
[2022-10-11] MEDS: PANTOPRAZOLE 40 MG TABLET PO SCH (09:02)
[2022-10-11] MEDS: MIDODRINE 5 MG TABLET PO SCH ×4 (09:02→21:43)
[2022-10-11 09:51] LABS: Albumin 2.3 G/DL (3.4-5.0); Bilirubin,Direct 0.79 MG/DL (0.0-0.20); Bilirubin,Indirect 1.2 MG/DL (0.0-1.0); Total Protein 6.2 G/DL (6.4-8.2)
[2022-10-11] MEDS: cefTRIAXone 1,000 MG in SODIUM CHLORIDE 0.9% 100 ML IV SCH (13:43)
[2022-10-12 04:56] LABS: Basophils # 0.1 10*3/uL (0.0-0.2); Basophils % 1.1 % (0.0-0.8); Eosinophils # 0.3 10*3/uL (0.0-0.87); Eosinophils % 4.3 % (0.00-10.9); Hematocrit 28.8 VOL% (42.0-52.0); Hemoglobin 9.2 GM/DL (14.0-18.0); Immature Granulocytes % 0.6 %; Immature Granulocytes Absolute 0.04 #; Lymphocytes # 1.2 10*3/uL (1.4-4.0); Lymphocytes % 16.8 % (21.2-54.2); Mean Corpuscular HGB Conc 31.9 GM/DL (32-36); Mean Corpuscular Volume 103.6 FL (87-102); Mean Platelet Volume 12.1 FL (9.6-12.0); Monocytes # 0.9 10*3/uL (0.11-0.8); Monocytes % 12.9 % (1.7-12.7); Neutrophils % 64.3 % (38.7-73.9); Platelet Count 61 T/CUMM (130-400); Red Blood Count 2.78 MC/CUMM (3.8-5.5); White Blood Count 7.13 T/CUMM (4-12)
[2022-10-12 05:01] LABS: Calcium 9.3 MG/DL (8.5-10.1); Osmolality,Calculated 289.5 MOS/KG (273-304); Potassium 4.5 MMOL/L (3.5-5.1)
[2022-10-12] MEDS: THYROID 60 MG TABLET PO SCH (05:40)
[2022-10-12 05:47] LABS: Burr Cells Few; Macrocytosis Slight
[2022-10-12] MEDS: MIDODRINE 5 MG TABLET PO SCH ×3 (10:00→21:12)
[2022-10-12] MEDS: PANTOPRAZOLE 40 MG TABLET PO SCH (10:00)
[2022-10-12] MEDS: ESCITALOPRAM 10 MG TABLET PO SCH (10:00)
[2022-10-12] MEDS: DOCUSATE SODIUM 100 MG CAPSULE PO SCH ×2 (10:00→21:12)
[2022-10-12] MEDS: MORPHINE 2 MG/1 ML SYRINGE IV PRN (12:05)
[2022-10-12] MEDS: ONDANSETRON 4 MG/2 ML VIAL IV PRN (12:05)
[2022-10-12] MEDS: cefTRIAXone 1,000 MG in SODIUM CHLORIDE 0.9% 100 ML IV SCH (12:05)
[2022-10-12] MEDS ORDERED: SODIUM CHLORIDE 0.9% 500 ML IV ONE (15:39)
[2022-10-12] MEDS: ALBUMIN 25% 12.5 GM/50 ML VIAL IV SCH (16:36)
[2022-10-12] MEDS: DEXTROSE 5% NACL 0.9% 1,000 ML IV SCH (16:36)
[2022-10-12] MEDS ORDERED: ALBUMIN 25% 12.5 GM/50 ML VIAL IV ONE (17:00)
[2022-10-12] MEDS ORDERED: ALBUMIN 25% 25 GM/100 ML VIAL IV ONE (17:53)
[2022-10-12] MEDS: SODIUM CHLORIDE 0.9% 1,000 ML IV SCH (18:08)
[2022-10-13] MEDS: ALBUMIN 25% 25 GM/100 ML VIAL IV SCH ×3 (03:16→22:13)
[2022-10-13 05:52] LABS: Calcium 8.6 MG/DL (8.5-10.1); Osmolality,Calculated 293.1 MOS/KG (273-304); Potassium 4.4 MMOL/L (3.5-5.1)
[2022-10-13] MEDS: THYROID 60 MG TABLET PO SCH (05:54)
[2022-10-13 09:16] LABS: Albumin 2.7 G/DL (3.4-5.0); Bilirubin,Direct 0.73 MG/DL (0.0-0.20); Bilirubin,Indirect 1.3 MG/DL (0.0-1.0); Total Protein 5.4 G/DL (6.4-8.2)
[2022-10-13] MEDS: MIDODRINE 5 MG TABLET PO SCH ×3 (10:14→22:14)
[2022-10-13] MEDS: ESCITALOPRAM 10 MG TABLET PO SCH (10:14)
[2022-10-13] MEDS: DOCUSATE SODIUM 100 MG CAPSULE PO SCH ×2 (10:15→22:14)
[2022-10-13] MEDS: PANTOPRAZOLE 40 MG TABLET PO SCH (10:16)
[2022-10-13] MEDS: cefTRIAXone 1,000 MG in SODIUM CHLORIDE 0.9% 100 ML IV SCH (16:10)
[2022-10-13] MEDS: DEXTROSE 5% NACL 0.9% 1,000 ML IV SCH (18:17)
[2022-10-13] MEDS: SODIUM CHLORIDE 0.9% 1,000 ML IV SCH (18:17)
[2022-10-14] MEDS: ALBUMIN 25% 25 GM/100 ML VIAL IV SCH ×3 (03:03→17:30)
[2022-10-14 05:36] LABS: Calcium 9.2 MG/DL (8.5-10.1); Osmolality,Calculated 296.1 MOS/KG (273-304); Potassium 4.8 MMOL/L (3.5-5.1)
[2022-10-14] MEDS: SODIUM CHLORIDE 0.9% 1,000 ML IV SCH ×2 (05:55→17:33)
[2022-10-14] MEDS: THYROID 60 MG TABLET PO SCH (05:57)
[2022-10-14] MEDS: DEXTROSE 5% NACL 0.9% 1,000 ML IV SCH (05:59)
[2022-10-14 06:03] LABS: Albumin 3.3 G/DL (3.4-5.0); Bilirubin,Direct 0.47 MG/DL (0.0-0.20); Bilirubin,Indirect 1.4 MG/DL (0.0-1.0); Bilirubin,Total 1.9 MG/DL (0.20-1.00); Total Protein 6.2 G/DL (6.4-8.2)
[2022-10-14 07:06] LABS: Basophils # 0.1 10*3/uL (0.0-0.2); Eosinophils # 0.4 10*3/uL (0.0-0.87); Hematocrit 26.9 VOL% (42.0-52.0); Hemoglobin 8.3 GM/DL (14.0-18.0); Immature Granulocytes % 0.5 %; Immature Granulocytes Absolute 0.03 #; Lymphocytes # 1.6 10*3/uL (1.4-4.0); Lymphocytes % 26.4 % (21.2-54.2); Mean Corpuscular HGB Conc 30.9 GM/DL (32-36); Mean Corpuscular Volume 106.3 FL (87-102); Mean Platelet Volume 10.9 FL (9.6-12.0); Monocytes # 1.2 10*3/uL (0.11-0.8); Monocytes % 19.8 % (1.7-12.7); Neutrophils % 46.3 % (38.7-73.9); Platelet Count 104 T/CUMM (130-400); Red Blood Count 2.53 MC/CUMM (3.8-5.5); Red Cell Distribution Width 17.1 % (9.3-17.3); White Blood Count 5.87 T/CUMM (4-12)
[2022-10-14 07:29] LABS: Eosinophils 9 % (0-10); Hypochromia Slight; Lymphocytes 31 % (20-55); Macrocytosis Slight; Ovalocytes Slight; Total Cells Counted 100
[2022-10-14] MEDS: DOCUSATE SODIUM 100 MG CAPSULE PO SCH ×2 (09:48→21:54)
[2022-10-14] MEDS: MIDODRINE 5 MG TABLET PO SCH ×3 (09:48→21:53)
[2022-10-14] MEDS: PANTOPRAZOLE 40 MG TABLET PO SCH (09:49)
[2022-10-14] MEDS: ESCITALOPRAM 10 MG TABLET PO SCH (09:49)
[2022-10-14] MEDS ORDERED: SODIUM CHLORIDE 0.9% 1,000 ML IV SCH (12:00)
[2022-10-14] MEDS ORDERED: LACTULOSE 20 GM/30 ML UDCUP PO ONE (15:10)
[2022-10-14] MEDS ORDERED: TISSUE ADHESIVE 1 EACH APPLICATOR TOP ONE (15:24)
[2022-10-14] MEDS: LACTULOSE 20 GM/30 ML UDCUP PO SCH (21:53)
[2022-10-15] MEDS: ALBUMIN 25% 25 GM/100 ML VIAL IV SCH ×3 (01:59→17:49)
[2022-10-15] MEDS: DEXTROSE 5% NACL 0.9% 1,000 ML IV SCH ×2 (02:00→22:14)
[2022-10-15 05:44] LABS: Calcium 9.3 MG/DL (8.5-10.1); Potassium 4.5 MMOL/L (3.5-5.1)
[2022-10-15] MEDS: THYROID 60 MG TABLET PO SCH (06:36)
[2022-10-15] MEDS: LACTULOSE 20 GM/30 ML UDCUP PO SCH ×4 (10:22→22:14)
[2022-10-15] MEDS: DOCUSATE SODIUM 100 MG CAPSULE PO SCH ×2 (10:24→20:17)
[2022-10-15] MEDS: MIDODRINE 5 MG TABLET PO SCH ×3 (10:24→20:16)
[2022-10-15] MEDS: PANTOPRAZOLE 40 MG TABLET PO SCH (10:25)
[2022-10-15] MEDS: ESCITALOPRAM 10 MG TABLET PO SCH (10:25)
[2022-10-15] MEDS: SODIUM CHLORIDE 0.9% 1,000 ML IV SCH (10:37)
[2022-10-16] MEDS: ALBUMIN 25% 25 GM/100 ML VIAL IV SCH ×3 (03:49→18:05)
[2022-10-16] MEDS: LACTULOSE 20 GM/30 ML UDCUP PO SCH ×6 (04:24→22:29)
[2022-10-16 04:54] LABS: Calcium 9.2 MG/DL (8.5-10.1); Osmolality,Calculated 295.3 MOS/KG (273-304); Potassium 4.2 MMOL/L (3.5-5.1)
[2022-10-16] MEDS: THYROID 60 MG TABLET PO SCH (06:08)
[2022-10-16] MEDS: MIDODRINE 5 MG TABLET PO SCH ×3 (09:35→20:17)
[2022-10-16] MEDS: PANTOPRAZOLE 40 MG TABLET PO SCH (09:35)
[2022-10-16] MEDS: ESCITALOPRAM 10 MG TABLET PO SCH (09:35)
[2022-10-16] MEDS: DOCUSATE SODIUM 100 MG CAPSULE PO SCH ×2 (09:35→20:17)
[2022-10-16] MEDS: SODIUM CHLORIDE 0.9% 1,000 ML IV SCH ×2 (15:01)
[2022-10-17] MEDS: ALBUMIN 25% 25 GM/100 ML VIAL IV SCH ×3 (02:31→17:53)
[2022-10-17] MEDS: LACTULOSE 20 GM/30 ML UDCUP PO SCH ×6 (02:32→21:06)
[2022-10-17] MEDS: THYROID 60 MG TABLET PO SCH (05:54)
[2022-10-17] MEDS: SODIUM CHLORIDE 0.9% 1,000 ML IV SCH (05:55)
[2022-10-17 08:34] LABS: Calcium 9.7 MG/DL (8.5-10.1); Osmolality,Calculated 303.6 MOS/KG (273-304); Potassium 4.2 MMOL/L (3.5-5.1)
[2022-10-17] MEDS: DOCUSATE SODIUM 100 MG CAPSULE PO SCH ×2 (09:40→21:06)
[2022-10-17] MEDS: PANTOPRAZOLE 40 MG TABLET PO SCH (09:40)
[2022-10-17] MEDS: ESCITALOPRAM 10 MG TABLET PO SCH (09:40)
[2022-10-17] MEDS: MIDODRINE 5 MG TABLET PO SCH ×3 (09:40→21:05)
[2022-10-18] MEDS: LACTULOSE 20 GM/30 ML UDCUP PO SCH ×4 (01:50→15:58)
[2022-10-18] MEDS: ALBUMIN 25% 25 GM/100 ML VIAL IV SCH ×2 (01:51→10:50)
[2022-10-18 05:40] LABS: Calcium 9.8 MG/DL (8.5-10.1); Osmolality,Calculated 308.3 MOS/KG (273-304); Potassium 4.2 MMOL/L (3.5-5.1)
[2022-10-18] MEDS: THYROID 60 MG TABLET PO SCH (06:06)
[2022-10-18] MEDS: MIDODRINE 5 MG TABLET PO SCH ×2 (09:39→15:58)
[2022-10-18] MEDS: PANTOPRAZOLE 40 MG TABLET PO SCH (09:39)
[2022-10-18] MEDS: DOCUSATE SODIUM 100 MG CAPSULE PO SCH (09:40)
[2022-10-18] MEDS: ESCITALOPRAM 10 MG TABLET PO SCH (09:42)
[2022-10-18] MEDS: SODIUM CHLORIDE 0.9% 1,000 ML IV SCH ×2 (15:55→16:03)
[2022-10-18 16:06] VITALS: BP 113/66
[2022-10-20 15:36] LABS: H pylori Specimen source STOOL; Helicobacter pylori Result Not Detected
== END 2022-10-18 17:03 | disposition hospice, home (50) | DRG 432 ==
LOC: N.TELES
PROVIDERS: ADMIT Family Medicine; ATTEND Family Medicine